=== PATIENT | female | born 1970 | race Two or more races ===

== ENCOUNTER 2021-04-17 09:57 | Emergency (ER) | payer OTHER ==
[~2021-04-17] VITALS: Ht 152.4 cm; Wt 52.6 kg
[2021-04-17] MEDS ORDERED: DUI500 PO (15:10)
== END 2021-04-17 16:18 | disposition home or self-care (01) ==
LOC: ER 09:57
DX: T81.49XA Infection following a procedure, other surgical site, initial encounter (principal); L03.818 Cellulitis of other sites; B96.5 Pseudomonas (aeruginosa) (mallei) (pseudomallei) as the cause of diseases classified elsewhere; B96.89 Other specified bacterial agents as the cause of diseases classified elsewhere